=== PATIENT | female | born 1950 | race American Indian/Alaskan Native ===

== ENCOUNTER 2018-05-21 13:47 | Emergency (ER) | payer MEDICARE ==
[2018-05-21 14:19] VITALS: RESP 16
[2018-05-21] MEDS ORDERED: MethylPREDNISolone 40 mg Vial IM STA (15:06)
[2018-05-21] MEDS ORDERED: MethylPREDNISolone 40 mg Vial ONE (15:22)
[2018-05-21 15:44] VITALS: BP 127/79; PULSE 58; TEMP 98.2; O2SAT 98
--- NOTE | 2018-05-21 16:30 | C.PDOC ---
History Of Present Illness 67 y/o female, w/PMhx of rheumatoid arthritis, presents to the ER complaining of swelling and redness to bilateral lower extremities. Patient states that she recently started new medication Sulfasalazine for rheumatoid arthritis. Patient reports that she was evaluated for the symptoms by her PMD. She was prescribed Hydroxyzine without relief and the swelling became worse. Therefore, her PMD referred her to the ER to rule out DVT and worsening symptoms. Denies having fever, chills, CP, SOB, and weakness. Time Seen by Provider: 05/21/18 14:54 Chief Complaint (Nursing): Lower Extremity Problem/Injury History Per: Patient History/Exam Limitations: no limitations Onset/Duration Of Symptoms: Days Current Symptoms Are (Timing): Still Present Severity: Moderate Past Medical History Reviewed: Historical Data, Nursing Documentation, Vital Signs Vital Signs: Last Vital Signs Temp 98.2 F 05/21/18 15:43 Pulse 58 L 05/21/18 15:43 Resp 16 05/21/18 15:43 BP 127/79 05/21/18 15:43 Pulse Ox 98 05/21/18 15:43 - Medical History PMH: Anemia, Arthritis, Asthma (NO MED), Back Problems, Diabetes, HTN, Hypothyroidism, Pneumonia, Rheumatoid Arthritis Denies: Chronic Kidney Disease Surgical History: Tonsillectomy Family History: States: No Known Family Hx - Social History Hx Tobacco Use: No Hx Alcohol Use: No Hx Substance Use: No - Immunization History Hx Tetanus Toxoid Vaccination: No Hx Influenza Vaccination: No Hx Pneumococcal Vaccination: Yes Review Of Systems Except As Marked, All Systems Reviewed And Found Negative. Constitutional: Negative for: Fever, Chills Respiratory: Negative for: Shortness of Breath Musculoskeletal: Positive for: Other (bilateral lower extremity swelling) Neurological: Negative for: Weakness, Numbness Physical Exam - Physical Exam Appears: Non-toxic, No Acute Distress Skin: Warm, Dry, Rash (urticaria to bilateral lower extremities) Head: Atraumatic, Normacephalic Eye(s): bilateral: Normal Inspection Nose: Normal Oral Mucosa: Moist Neck: Supple Chest: Symmetrical Cardiovascular: Rhythm Regular Respiratory: Normal Breath Sounds, No Rales, No Rhonchi, No Wheezing Gastrointestinal/Abdominal: Normal Exam, Soft, No Tenderness, No Guarding, No Rebound Extremity: Normal ROM, No Tenderness, Capillary Refill (< 2 seconds), Other (2+ pitting edema to bilateral lower extremities) Pulses: Left Dorsalis Pedis: Normal, Right Dorsalis Pedis: Normal Neurological/Psych: Oriented x3, Normal Speech ED Course And Treatment O2 Sat by Pulse Oximetry: 98 (RA) Pulse Ox Interpretation: Normal Medical Decision Making Medical Decision Making: Plan: --Doppler Scan - Low Ext Irving --Benadryl PO --Pepcid PO --Solu-Medrol IM Updates: Doppler Scan is negative for DVT. On re-exam, the patient reports improvement of symptoms. Lungs are CTA, heart is RRR, abdomen is soft, non-tender and tolerating Po well. Follow up with the medical doctor within 1-2 days without fail. Return if worsened. Disposition - Disposition Referrals: Levi Fermin DO [[facility]] - Disposition: HOME/ ROUTINE Disposition Time: 16:29 Condition: GOOD Additional Instructions: Follow up with the medical doctor within 1-2 days without fail. Return if wo rsened. Prescriptions: DiphenhydrAMINE [Benadryl] 25 mg PO QID #28 cap Famotidine [Pepcid] 20 mg PO BID #20 tab predniSONE [Prednisone] 10 mg PO BID #10 tab Instructions: Hives (DC) Forms: [employer] (Albanian) - Clinical Impression Clinical Impression: Allergic urticaria - PA / SPECIAL PROCEDURES TECH / Resident Statement / has reviewed & agrees with the documentation as recorded. - Scribe Statement The provider has reviewed the documentation as recorded by the Shaheen Victor Provider Attestation All medical record entries made by the Scribe were at my direction and personally dictated by me. I have reviewed the chart and agree that the record accurately reflects my personal performance of the history, physical exam, medical decision making, and the department course for this patient. I have also personally directed, reviewed, and agree with the discharge instructions and disposition.
--- NOTE | 2018-05-22 11:08 | VASCLAB ---
Date of service: 05/21/2018 PROCEDURE: Lower Extremity Venous Duplex Exam. HISTORY: bilateral lower ext swell r/o DVT PRIORS: None. TECHNIQUE: Bilateral common femoral, femoral, popliteal and posterior tibial, peroneal and great saphenous veins were evaluated. Flow was assessed with color Doppler, compressibility, assessment of phasic flow and augmentation response. Report prepared by Francisco Wiggins, BS, RVT FINDINGS: RIGHT: 1. Common Femoral Vein: 1.1. Compressibility - Fully compressible: Thrombus - None : Flow - Phasic: Augmentation -Normal: Reflux - None. 2. Femoral Vein: 2.1. Compressibility - Fully compressible: Thrombus - None : Flow - Phasic: Augmentation -Normal: Reflux - None. 3. Popliteal Vein: 3.1. Compressibility - Fully compressible: Thrombus - None : Flow - Phasic: Augmentation -Normal: Reflux - None. 4. Posterior Tibial Vein: 4.1. Compressibility - Fully compressible: Thrombus - None: Flow - Phasic: Augmentation -Normal: Reflux - None. 5. Peroneal Vein: 5.1. Compressibility - Fully compressible: Thrombus - None: Flow - Phasic: Augmentation -Normal: Reflux - None. 6. Great Saphenous Vein: 6.1. Compressibility - Fully compressible: Thrombus - None: Flow - Phasic: Augmentation - Normal: Reflux - None. LEFT: 1. Common Femoral Vein: 1.1. Compressibility - Fully compressible: Thrombus - None: Flow - Phasic: Augmentation -Normal: Reflux - None. 2. Femoral Vein: 2.1. Compressibility - Fully compressible: Thrombus - None: Flow - Phasic: Augmentation -Normal: Reflux - None. 3. Popliteal Vein: 3.1. Compressibility - Fully compressible: Thrombus - None : Flow - Phasic: Augmentation -Normal: Reflux - None. 4. Posterior Tibial Vein: 4.1. Compressibility - Fully compressible: Thrombus - None: Flow - Phasic: Augmentation -Normal: Reflux - None. 5. Peroneal Vein: 5.1. Compressibility - Fully compressible: Thrombus - None: Flow - Phasic: Augmentation -Normal: Reflux - None. 6. Great Saphenous Vein: 6.1. Compressibility - Fully compressible: Thrombus - None: Flow - Phasic: Augmentation - Normal: Reflux - None. OTHER FINDINGS: Right: None significant. Left: None significant. IMPRESSION: Right: No evidence of deep or superficial vein thrombosis of the right lower extremity. Normal valve function noted of the right side. Left: No evidence of deep or superficial vein thrombosis of the left lower extremity. Normal valve function noted of the left side.
== END 2018-05-21 16:49 | disposition home or self-care (01) ==
LOC: C.ER 13:47
DX: L50.0 Allergic urticaria (principal); I10 Essential (primary) hypertension; E03.9 Hypothyroidism, unspecified; M06.9 Rheumatoid arthritis, unspecified
CPT/HCPCS: 93970; 96372; 99284; J2920